=== PATIENT | female | born 1965 | race Caucasian/White ===

== ENCOUNTER 2024-08-14 07:45 | Emergency (ER) | payer MEDICAID, SELFPAY ==
[2024-08-14 07:45] VITALS: BMI 30.7
[2024-08-14 08:17] VITALS: BP 113/66; PULSE 93; RESP 18; TEMP 36.7; O2SAT 97; BMI 40.2
[2024-08-14] MEDS: ACETAMINOPHEN SOL 325 MG/10 ML UDC 650 MG PO (08:44)
[2024-08-14] MEDS: DEXAMETHASONE SOD PHOS INJ 10 MG/ML VIAL PO (08:45)
[2024-08-14 08:52] LABS: Strep A Rapid Negative (Negative)
--- NOTE | 2024-08-14 08:59 | EDNOTE_ITS ---
<Statement entered by Debra Cardenas MD - 08/17/24 13:13> As co-signing physician, I was present and available for consult prn. I concur with the plan and care as documented by the midlevel provider. Upper Respiratory Inf. RME/HPI General Chief Complaint: Dental/Oral/Throat Stated Complaint: SORETHROAT Time Seen by Provider: 08/14/24 07:47 Arrival date/time: 08/14/24 07:45 58-year-old female presents to the emergency department today complaints of sore throat and painful swallowing patient reports multiple sick contacts Limitations: no limitations Related Data Home Medications ?Medication ?Instructions ?Recorded ?Confirmed levothyroxine 100 mcg tablet 100 mcg PO QDAY #0 tabs 12/06/13 05/03/19 (Synthroid) fluoxetine 20 mg capsule (Prozac) 20 mg PO QAM #0 caps 01/23/15 05/03/19 loratadine 10 mg tablet (Claritin) 10 mg PO QDAY #0 tabs 02/03/17 05/03/19 metformin 500 mg tablet 250 mg PO DAILY #0 tabs 03/15/17 05/03/19 (Glucophage) oxybutynin chloride 5 mg tablet 5 mg PO BID #0 tabs 03/15/17 05/03/19 buspirone 15 mg tablet 15 mg PO QDAY 12/01/18 05/03/19 cyclobenzaprine 10 mg tablet 10 mg PO QHSPRN PRN Muscle Spasm 12/01/18 05/03/19 doxazosin 4 mg tablet 4 mg PO QDAY 12/01/18 05/03/19 hydrocodone 7.5 mg-acetaminophen 7.5 - 325 tab PO QDAY 12/01/18 05/03/19 325 mg tablet Previous Rx's ?Medication ?Instructions ?Recorded benzonatate 200 mg capsule 200 mg PO TID PRN cough #20 caps 10/06/22 benzonatate 100 mg capsule 100 mg PO BID PRN cough #14 caps 07/19/23 ciprofloxacin HCl 500 mg tablet 500 mg PO BID #14 tabs 07/19/23 (Cipro) acetaminophen 325 mg tablet (Aphen) 650 mg (2 x 325 mg) PO QID PRN 01/13/24 pain #60 tabs cyclobenzaprine 10 mg tablet 10 mg PO TID PRN muscle spasm #30 06/14/24 tabs acetaminophen 500 mg capsule 1,000 mg (2 x 500 mg) PO Q8HR PRN 08/14/24 pain #30 caps clindamycin HCl 300 mg capsule 300 mg PO TID 7 days #21 caps 08/14/24 Allergies Allergy/AdvReac Type Severity Reaction Status Date / Time amoxicillin Allergy Severe Rash Verified 08/14/24 07:48 aspirin Allergy Severe RASH Verified 08/14/24 07:48 [id number] Allergy Severe ITCH Verified 08/14/24 07:48 ibuprofen Allergy Severe Rash Verified 08/14/24 07:48 metronidazole Allergy Severe Rash Verified 08/14/24 07:48 nefazodone Allergy Severe Rash Verified 08/14/24 07:48 Penicillins Allergy Severe Rash Verified 08/14/24 07:48 silver Allergy Severe Rash Verified 08/14/24 07:48 [From [employer]] Review of Systems Review of Systems Systems Reviewed: All systems reviewed, normal except as documented Constitutional Constitutional: Reports system reviewed and no additional complaints, except as documented, Reports body ache(s), Reports chills, Reports fatigue, Reports fever(s) and Reports headache(s) Eyes Eyes: Reports system reviewed and no additional complaints, except as documented and Denies blurry vision ENT Ears, Nose, Mouth, and Throat: Reports system reviewed and no additional complaints, except as documented, Reports headache(s), Reports nasal congestion, Reports nasal discharge, Reports sore throat and Denies throat swelling Cardiovascular Cardiovascular: Reports system reviewed and no additional complaints, except as documented, Denies chest pain and Denies dyspnea Respiratory Respiratory: Reports system reviewed and no additional complaints, except as documented, Denies chest congestion, Denies cough and Denies dyspnea Gastrointestinal Gastrointestinal: Reports system reviewed and no additional complaints, except as documented and Denies abdominal pain Integumentary/Breasts Skin/Breast: Reports system reviewed and no additional complaints, except as documented and Denies rash Neurologic Neurologic: Reports system reviewed and no additional complaints, except as documented, Reports as per HPI and Reports headache(s) Endocrine Endocrine: Reports fatigue Allergic/Immunologic Allergic/Immunologic: Denies throat swelling Past Medical History Past Medical History NEUROLOGIC: Negative Neurological Disorders CARDIAC: Negative Cardiac Disorders ED Exam General Limitations: Present no limitations General appearance: Present alert and in no apparent distress Head Head exam: Present atraumatic, normocephalic and normal inspection Eye Eye exam: Present normal appearance, PERRL and EOMI; Absent conjunctival injection ENT ENT exam: Present normal exam, normal oropharynx and mucous membranes moist Neck Neck exam: Present normal inspection, full ROM and trachea midline Chest Chest inspection: Present normal inspection and symmetric chest wall rise Respiratory Respiratory exam: Present normal lung sounds bilaterally; Absent respiratory distress Cardiovascular Cardiovascular exam: Present regular rate, normal rhythm and normal heart sounds Abdominal Exam Abdominal exam: Present soft and normal bowel sounds; Absent distention, tenderness, guarding, rebound or rigidity Extremities Exam Extremities exam: Present normal inspection and full ROM; Absent tenderness Back Exam Back exam: Present normal inspection and full ROM Neurological Exam Neurological exam: Present alert, oriented X3, CN II-XII intact, normal gait and reflexes normal; Absent motor sensory deficit Psychiatric Psychiatric exam: Present normal affect and normal mood Skin Skin exam: Present warm, dry, intact and normal color; Absent rash Course Quality Measures none Orders Category Date Time Status Bedside Influenza A&B Antigen Test NOW Care 08/14/24 08:15 Completed Strep A Rapid Stat Lab 08/14/24 08:30 Completed Acetaminophen Fely [Tylenol Fely] Med 08/14/24 08:15 Discontinued 650 mg PO X1 ONE Dexamethasone Inj [Decadron Inj] Med 08/14/24 08:15 Discontinued 10 mg PO X1 ONE Vital Signs Vital signs: Vital Signs Temperature 98.1 F 08/14/24 08:17 Pulse Rate 93 08/14/24 08:17 Respiratory Rate 18 08/14/24 08:17 Blood Pressure 113/66 08/14/24 08:17 Pulse Oximetry (%) 97 08/14/24 08:17 Oxygen Delivery Method Room Air 08/14/24 08:17 O2 saturation 97% on room air within normal limits Upper Respiratory Infection MDM Narrative MDM Narrative:: 58-year-old female presents to the emergency department today complaints of sore throat and painful swallowing patient reports multiple sick contacts On exam patient does not appear ill or toxic but does not appear to be in acute distress patient does report sore throat and pain with swallowing Lab work obtained and is unremarkable Patient given dexamethasone and Tylenol here Symptoms highly consistent with pharyngitis Patient discharged home in no distress to follow-up with primary care doctor in the next 24 to 48 hours and for any worsening symptoms to return to the ER immediately Patient data External records reviewed:: [facility] previous records Clinical information provided by:: patient Social determinants that could affect healthcare access:: none Patient has the following chronic illnesses:: none How is presenting disease/condition affected by chronic disease/condition?: no chronic disease Evaluation data The following diagnostics were reviewed and interpreted by me:: lab results Lab and/or radiology exams considered but not ordered:: Labs obtained Interpretation Summary: Reviewed by me reviewed by me Medications / Prescriptions Medications or Prescriptions considered but not ordered:: Given Medication administrations:: Medication Administration History Discontinued Medications Acetaminophen (Acetaminophen Fely 325 Mg/10 Ml Udc) 650 mg PO X1 ONE Stop: 08/14/24 08:16 Last Admin: 08/14/24 08:44 Dose: 650 mg Documented By: CARLTON Dexamethasone Sodium Phosphate (Dexamethasone Sod Phos Inj 10 Mg/Ml Vial) 10 mg PO X1 ONE Stop: 08/14/24 08:16 Last Admin: 08/14/24 08:45 Dose: 10 mg Documented By: CARLTON Given Consultations Consultation(s) initiated? (list below): No Diagnosis Upper Respiratory Differential Diagnosis: upper respiratory infection, sinusitis, viral infection, bronchitis and pharyngitis Most likely diagnosis given after review of the tests above:: pharyngitis Admission Indicated Admission indicated?: not indicated Admission Request Was there a request for admission?: No Disposition Plan Disposition Plan: Discharge Discharge Attestation Discharge Attestation: The patient and all family members were given an opportunity to ask questions and understood the discharge instructions. Discharge instructions specifically effects, indications for sooner follow up or return to the emergency department, and the expected course of current diagnosis. Patient condition: Stable Discharge Plan Plan Patient Disposition: HOME (Self Care) Disposition Comment: stable Prescriptions/Referrals Prescriptions/Med Rec: New acetaminophen 500 mg capsule 1,000 mg PO Q8HR PRN (Reason: pain) Qty: 30 0RF clindamycin HCl 300 mg capsule 300 mg PO TID 7 Days Qty: 21 0RF No Action levothyroxine [Synthroid] 100 mcg Tablet 100 mcg PO QDAY Qty: 0 fluoxetine [Prozac] 20 MG capsule 20 mg PO QAM Qty: 0 loratadine [Claritin] 10 MG tablet 10 mg PO QDAY Qty: 0 metformin [Glucophage] 500 MG tablet 250 mg PO DAILY Qty: 0 oxybutynin chloride 5 MG tablet 5 mg PO BID Qty: 0 buspirone 15 mg Tablet 15 mg PO QDAY cyclobenzaprine 10 mg Tablet 10 mg PO QHSPRN PRN (Reason: Muscle Spasm) doxazosin 4 mg Tablet 4 mg PO QDAY hydrocodone-acetaminophen 7.5-325 mg Tablet 7.5 - 325 tab PO QDAY ciprofloxacin HCl [Cipro] 500 mg tablet 500 mg PO BID Qty: 14 0RF benzonatate 100 mg capsule 100 mg PO BID PRN (Reason: cough) Qty: 14 0RF acetaminophen [Aphen] 325 mg tablet 650 mg PO QID PRN (Reason: pain) Qty: 60 0RF cyclobenzaprine 10 mg tablet 10 mg PO TID PRN (Reason: muscle spasm) Qty: 30 0RF benzonatate 200 mg capsule 200 mg PO TID PRN (Reason: cough) Qty: 20 0RF Referrals: Pearl Garrison PA-C [Primary Care Provider] - In 1 week Problem List Clinical Impression: Pharyngitis Patient/Caregiver Discharge Instructions Education Materials: Self-Care for Sore Throats Additional Instructions: Please follow up with your primary care doctor in the next 24-48hrs for any worsening symptoms return here immediately Print Language: Panamanian Stand Alone Forms: Silvia Award Info., Patient Portal Info Letter PA/[place] Supervising Physician JEN/[place] Supervising Physician: Dr. cardenas
== END 2024-08-14 09:58 | disposition home or self-care (01) ==
PROVIDERS: Nurse Practitioner Primary Care; Emergency Provider Emergency Medicine; PCP Physician Assistant
DX: J02.9 Acute pharyngitis, unspecified (principal)
CPT/HCPCS: 87400; 87651; 99283; J1100; A9270

== ENCOUNTER 2024-09-12 13:41 | Emergency (ER) | payer MEDICAID, SELFPAY ==
[2024-09-12 14:12] VITALS: BP 91/62; PULSE 110; RESP 18; TEMP 36.8; O2SAT 96; BMI 30.5
--- NOTE | 2024-09-12 14:20 | XR_ITS ---
Examination: PA lateral chest 2 views TECHNIQUE: Upright PA lateral chest 2 views Exam date 9: September 12, 2024 1431 hours Comparison July 13, 2023 INDICATIONS: Coughing beginning 2 days ago. FINDINGS: Stable bilateral granulomatous Normal heart size Accentuation bronchovascular markings IMPRESSION: Bronchitis pattern
--- NOTE | 2024-09-12 14:26 | PD.EDRME ---
Rapid Medical Screening Exam E Arrival date/time: 09/12/24 13:41 58-year-old female with a history of hyperlipidemia, hypothyroidism and type 2 diabetes presents to the emergency room with a chief complaint of lower abdominal pain, diarrhea, cough and congestion x 3 days. I have greeted and performed a focused initial assessment of this patient. A comprehensive ED assessment and evaluation of the patient, analysis of all test results, and completion of the medical decision making process will be conducted by additional ED providers. Chief Complaint: Flu Like Symptoms Time Seen by Provider: 09/12/24 14:12 Vital signs: Vital Signs Temperature 98.3 F 09/12/24 14:12 Pulse Rate 110 H 09/12/24 14:12 Respiratory Rate 18 09/12/24 14:12 Blood Pressure 91/62 09/12/24 14:12 Pulse Oximetry (%) 96 09/12/24 14:12 Oxygen Delivery Method Room Air 09/12/24 14:12 Vital signs reviewed by provider: Yes
--- NOTE | 2024-09-12 14:27 | EKG_ITS ---
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
[2024-09-12 14:47] LABS: Basophils # (Auto) 0.1 Thou/mm3 (0.0-0.2); Basophils % (Auto) 1 % (0-2.5); Eosinophils # (Auto) 0.1 Thou/mm3 (0.0-0.5); Eosinophils % (Auto) 1 % (0-10); Hematocrit 36.9 % (36.0-46.0); Hemoglobin 12.6 g/dL (12.0-16.0); Immature Granulocytes % (Auto) 0 % (0-0); Immature Granulocytes Auto 0.04 Thou/mm3 (0.00-0.00); Lymphocytes # (Auto) 2.8 Thou/mm3 (1.0-4.8); Lymphocytes % (Auto) 28 % (10-50); Mean Corpuscular HGB Conc 34.1 g/dl (31.0-37.0); Mean Corpuscular Hemoglobin 30.1 pg (25.0-35.0); Mean Corpuscular Volume 88 fL (80-100); Monocytes # (Auto) 0.8 Thou/mm3 (0.0-0.8); Monocytes % (Auto) 8 % (0-12); Neutrophils # (Auto) 6.1 Thou/mm3 (1.8-7.7); Neutrophils % (Auto) 62 % (37-80); Nucleated Red Blood Cell % 0 /100 WBC (0); Platelet Count 448 Thou/mm3 (140-440); RDW Standard Deviation 38.6 fL (36.4-46.3); Red Blood Count 4.19 Miln/mm3 (4.00-5.20); White Blood Count 9.8 Thou/mm3 (3.6-11.0)
[2024-09-12 15:08] LABS: Alanine Aminotransferase 15 U/L (10-49); Albumin, Serum 4.6 gm/dL (3.5-5.0); Albumin/Globulin Ratio 1.8 (1.2-2.2); Alkaline Phosphatase 108 U/L (46-116); Anion Gap 4 (7-16); Aspartate Amino Transferase 17 U/L (0-34); BUN/Creatinine Ratio 16 Ratio (12-20); Bilirubin,Total 0.7 mg/dL (0.3-1.2); Blood Urea Nitrogen 13 mg/dL (9-23); Carbon Dioxide 27.6 mMol/L (20.0-31.0); Chloride 110 mMol/L (98-107); Creatinine (Component) 0.8 mg/dL (0.6-1.3); Estimated Creatinine Clearance 94.7 mL/min (>60); Globulin 2.5 gm/dL (2.3-3.5); Glucose 82 mg/dL (74-106); Lipase 36 U/L (12-53); Osmolality,Calculated 282 (275-295); Potassium 4.1 mMol/L (3.4-5.1); Sodium 142 mMol/L (136-145); Total Protein 7.1 gm/dL (5.7-8.2); Troponin I < 0.002 ng/mL (0.0-0.045); eGFR > 60 See Note
[2024-09-12 15:11] LABS: B-Type Natriuretic Peptide < 20 pg/mL (0-100)
[2024-09-12 15:14] LABS: Collection Type, Urine Clean Catch
[2024-09-12 15:41] LABS: Bacteria,Urine 2+; Bilirubin,Urine Negative (Negative); Blood,Urine Negative (Negative); Clarity,Urine Turbid (Clear/Hazy); Color,Urine Yellow (Lt Yel-Yel); Glucose, Urine Negative (Negative); Ketones,Urine Negative (Negative); Leukocyte Esterase,Urine Positive (Negative); Nitrite,Urine Negative (Negative); PH,Urine 6.5 (5.0-7.0); Protein,Urine Trace (Neg - Trace); RBC,Urine 4 /hpf (0-3); Specific Gravity,Urine 1.024 (1.001-1.035); Squamous Epithelial Cell,Urine 31 /hpf (0-5); Urobilinogen,Urine Negative mg/dL (0.0-1.0); WBC,Urine 13 /hpf (0-5)
--- NOTE | 2024-09-12 18:25 | PD.EDURI ---
Upper Respiratory Inf. RME/HPI General Chief Complaint: Flu Like Symptoms Stated Complaint: COUGH, CONGESTION, ABD PAIN, DIARRHEA Time Seen by Provider: 09/12/24 14:12 Arrival date/time: 09/12/24 13:41 RME / HPI RME / HPI Narrative: 09/12/24 13:41 58-year-old female with a history of hyperlipidemia, hypothyroidism and type 2 diabetes presents to the emergency room with a chief complaint of lower abdominal pain, diarrhea, cough and congestion x 3 days. I have greeted and performed a focused initial assessment of this patient. A comprehensive ED assessment and evaluation of the patient, analysis of all test results, and completion of the medical decision making process will be conducted by additional ED providers. This section includes all my notes and documentations, including HPI, PE, and ED course. Martin Harvey MD HPI: 58yo female presents to the ED for a chief complaint of flu-like symptoms x 2 days. Patient states she's had a productive cough with dark green phlegm, nausea, diarrhea, and generalized body aches for the last two days. She's been taking Tylenol 650mg without any improvement of symptoms, so she came in for evaluation. She denies any fever, chills, vomiting or any other associated symptoms. No other complaints reported. ROS: All negative except as documented in HPI. Physical Exam: General: Alert and oriented. Hacking cough noted. Eyes: Conjunctivae and lids clear. ENT: No nasal congestion. Neck: Supple. Heart: RRR. Lungs: No respiratory distress. Good air movement. No rhonchi, wheezing, rales. Abdomen: Soft and nontender. Legs: No clubbing, cyanosis, edema. Skin: Warm and dry. Neuro: Alert and oriented X 3. I reviewed all diagnostic test results. Remarkable for positive influenza. At this point, diagnoses include Influenza. Treatment here included Tamiflu and Prednisone. Recommended supportive care. Based on my best medical judgment, made decision no further evaluation or treatment indicated at this time. Patient understands and agrees to the discharge instructions customized and printed, see below. Discharge instructions from Dr. Harvey: --No physical exertion for 3 days to help rest your lungs. --No smoking and no exposure to smoking or pets or dust or cold air. --Tamiflu to kill the influenza germs. --Prednisone to help decrease inflammation of the lungs. --Ibuprofen 800 mg every 8 hours today and tomorrow. Then as needed for fever or pain. --Tylenol with codeine for severe cough or pain. --Benadryl as needed for cough or congestion. --Albuterol 2 puffs every 4-6 hours for 24 hours scheduled. Then as needed (and in between) for cough or shortness or breath. ?Increase oral fluid. We need extra fluid when we are sick. --See a private doctor next week if not better. --Seek immediate medical care with significant worsening or with any concerns. Martin Harvey MD Related Data Home Medications ?Medication ?Instructions ?Recorded ?Confirmed levothyroxine 100 mcg tablet 100 mcg PO QDAY #0 tabs 12/06/13 09/04/24 (Synthroid) fluoxetine 20 mg capsule (Prozac) 20 mg PO QAM #0 caps 01/23/15 09/04/24 loratadine 10 mg tablet (Claritin) 10 mg PO QDAY #0 tabs 02/03/17 09/04/24 metformin 500 mg tablet 250 mg PO DAILY #0 tabs 03/15/17 09/04/24 (Glucophage) buspirone 15 mg tablet 15 mg PO BID 12/01/18 09/04/24 cyclobenzaprine 10 mg tablet 10 mg PO QHSPRN PRN Muscle Spasm 12/01/18 09/04/24 doxazosin 4 mg tablet 4 mg PO QDAY 12/01/18 09/04/24 hydrocodone 7.5 mg-acetaminophen 7.5 - 325 tab PO QDAY 12/01/18 09/04/24 325 mg tablet atorvastatin 20 mg tablet 20 mg PO QDAY 09/04/24 09/04/24 fluticasone furoate 100 1 inh inhalation QDAY 09/04/24 09/04/24 mcg/actuation blister powder for inhalation (Arnuity Ellipta) vibegron 75 mg tablet (Gemtesa) 75 mg PO QDAY 09/04/24 09/04/24 Previous Rx's ?Medication ?Instructions ?Recorded benzonatate 200 mg capsule 200 mg PO TID PRN cough #20 caps 10/06/22 benzonatate 100 mg capsule 100 mg PO BID PRN cough #14 caps 12/19/23 acetaminophen 325 mg tablet (Aphen) 650 mg (2 x 325 mg) PO QID PRN 01/13/24 pain #60 tabs cyclobenzaprine 10 mg tablet 10 mg PO TID PRN muscle spasm #30 01/13/24 tabs acetaminophen 300 mg-codeine 30 mg 2 tab PO TID PRN pain #20 tabs 09/12/24 tablet albuterol sulfate 90 mcg/actuation 2 inh inhalation QID PRN shortness 09/12/24 aerosol inhaler of breath or wheezing #8.5 grams oseltamivir 75 mg capsule (Tamiflu) 75 mg PO BID 5 days #10 caps 09/12/24 prednisone 20 mg tablet 20 mg PO QDAY 5 days #5 tabs 09/12/24 Allergies Allergy/AdvReac Type Severity Reaction Status Date / Time amoxicillin Allergy Severe Rash Verified 09/04/24 12:23 aspirin Allergy Severe RASH Verified 09/04/24 12:23 [id number] Allergy Severe ITCH Verified 08/14/24 07:48 ibuprofen Allergy Severe Rash Verified 09/04/24 12:23 metronidazole Allergy Severe Rash Verified 09/04/24 12:23 nefazodone Allergy Severe Rash Verified 09/04/24 12:23 Penicillins Allergy Severe Rash Verified 09/04/24 12:23 silver (From Tegaderm [employer] Allergy Severe Rash Verified 09/04/24 12:23 Mesh) Review of Systems Review of Systems Systems Reviewed: All systems reviewed, normal except as documented Past Medical History Past Medical History NEUROLOGIC: Negative Neurological Disorders or Seizures CARDIAC: Positive Cardiac Disorders and Hypercholesterolemia; Negative Congestive Heart Failure or Edema RESPIRATORY: Positive Chronic Obstructive Pulmonary Disease (COPD), Asthma and Bronchitis; Negative Tuberculosis or Sleep Apnea GASTROINTESTINAL: Positive Gastrointestinal Disorders and Hiatal Hernia; Negative Hepatitis or Colorectal Cancer GENITOURINARY: Positive Genitourinary Disorders (overactive bladder); Negative Renal Disease REPRODUCTIVE: Positive Previous Pregnancies; Negative Breast Cancer, Endometriosis, Genital Herpes, Gonorrhea, Pelvic Inflammatory Disease, Syphilis or Uterine Prolapse MUSCULOSKELETAL: Positive Musculoskeletal Disorders (djd), Arthritis and Fractures ENT: Negative Blind ENDOCRINE: Positive Endocrine Disorders, Diabetes Mellitus Type 2, Hyperthyroidism and Hypothyroidism; Negative Diabetes Mellitus Type 1 HEMATOLOGIC: Negative Blood Disorders PSYCHO/SOCIAL: Positive Depression; Negative Anxiety or Post Traumatic Stress Disorder OTHER HISTORY: Positive Chicken Pox; Negative Autoimmune Disease, Shingles, Falls, Blood Transfusions, Anesthesia Reactions, Chemotherapy, MRSA, Human Immunodeficiency Virus (HIV), Measles, Mumps, Rubella (Bulgarian Measles), Pertussis, Clostridium Difficile, Cancer, Breast Cancer, Cervical Cancer, Colorectal Cancer, Lung Cancer or Ovarian Cancer Family History FAMILY HISTORY: Positive Family Surgery; Negative Family Psychiatric Problems, Family Respiratory Disorders, Family Cardiac Disorders, Family Gastrointestinal Problems, Family Cancer or Family Anesthesia Reaction Surgical History SURGICAL: Positive Abdominal Surgery, Nephrectomy, Joint Replacement, Hysterectomy and Section; Negative Cardiac Surgery, Endocrine Surgery, Ear Surgery or Neurologic Surgery Social History SMOKING STATUS: Never smoker ED Exam Narrative Physical exam: As noted in HPI. Course Course Course Narrative: CXR is ordered for determining the etiology of cough. Quality Measures none Orders Category Date Time Status Bedside COVID-19 Antigen Test NOW Care 09/12/24 14:19 Active Bedside Influenza A&B Antigen Test NOW Care 09/12/24 14:19 Completed EKG (ED ONLY) *Do not use* NOW Care 09/12/24 14:27 Completed EKG (ED Only) Stat Exams 09/12/24 14:27 Draft XR chest 2V Stat Exams 09/12/24 14:20 Completed BNP [B-Type Natriuretic Peptide] Stat Lab 09/12/24 14:27 Completed CBC Stat Lab 09/12/24 14:27 Completed CMP [Comprehensive Metabolic Panel] Stat Lab 09/12/24 14:27 Completed Lipase Stat Lab 09/12/24 14:27 Completed Troponin I Stat Lab 09/12/24 14:27 Completed UA [Urinalysis] Stat Lab 09/12/24 15:05 Completed Urine Culture Stat Lab 09/12/24 15:05 Received Oseltamivir [Tamiflu] Med 09/12/24 18:35 Discontinued 75 mg PO X1 ONE predniSONE Med 09/12/24 18:35 Discontinued 60 mg PO X1 ONE Vital Signs Vital signs: Vital Signs Temperature 98.3 F 09/12/24 14:12 Pulse Rate 110 H 09/12/24 14:12 Respiratory Rate 18 09/12/24 14:12 Blood Pressure 91/62 09/12/24 14:12 Pulse Oximetry (%) 96 09/12/24 14:12 Oxygen Delivery Method Room Air 09/12/24 14:12 Upper Respiratory Infection MDM Narrative MDM Narrative:: Scribe Attestation: 09/12/24 Elmira Mark am scribing for and in the presence of Dr. Harvey. Patient data External records reviewed:: [facility] previous records (Per chart review, patient was seen here on 08/14/24 for pharyngitis.) Clinical information provided by:: patient Social determinants that could affect healthcare access:: none Patient has the following chronic illnesses:: asthma, HLD How is presenting disease/condition affected by chronic disease/condition?: uneffected by Evaluation data The following diagnostics were reviewed and interpreted by me:: lab results, radiology exam(s) and EKG tracing(s) Lab and/or radiology exams considered but not ordered:: none Interpretation Summary: Influenza Medications / Prescriptions Medications or Prescriptions considered but not ordered:: none Medication administrations:: Medication Administration History Discontinued Medications Oseltamivir Phosphate (Oseltamivir 75 Mg Capsule) 75 mg PO X1 ONE Stop: 09/12/24 18:36 Prednisone (Prednisone 20 Mg Tablet) 60 mg PO X1 ONE Stop: 09/12/24 18:36 Tamiflu, Prednisone Consultations Consultation(s) initiated? (list below): No Diagnosis Upper Respiratory Differential Diagnosis: upper respiratory infection, otitis media, sinusitis, viral infection, bronchitis, influenza and pharyngitis Most likely diagnosis given after review of the tests above:: Influenza Admission Indicated Admission indicated?: not indicated Explain why admission is indicated or not indicated:: No criteria for admission. Admission Request Was there a request for admission?: No Disposition Plan Disposition Plan: Discharge Discharge Attestation Discharge Attestation: The patient and all family members were given an opportunity to ask questions and understood the discharge instructions. Discharge instructions specifically effects, indications for sooner follow up or return to the emergency department, and the expected course of current diagnosis. Patient condition: Stable Discharge Plan Plan Patient Disposition: HOME (Self Care) Prescriptions/Referrals Prescriptions/Med Rec: New acetaminophen-codeine 300-30 mg tablet 2 tab PO TID MDD 6 PRN (Reason: pain) Qty: 20 0RF albuterol sulfate 90 mcg/actuation HFA aerosol inhaler 2 inh inhalation QID PRN (Reason: shortness of breath or wheezing) Qty: 8.5 0RF prednisone 20 mg tablet 20 mg PO QDAY 5 Days Qty: 5 0RF Taper: Prednisone Taper 20 mg DAILY for 2 Days and 0 Hour 10 mg DAILY for 2 Days and 0 Hour 5 mg DAILY for 7 Days and 0 Hour oseltamivir [Tamiflu] 75 mg capsule 75 mg PO BID 5 Days Qty: 10 0RF No Action levothyroxine [Synthroid] 100 mcg Tablet 100 mcg PO QDAY Qty: 0 fluoxetine [Prozac] 20 MG capsule 20 mg PO QAM Qty: 0 loratadine [Claritin] 10 MG tablet 10 mg PO QDAY Qty: 0 metformin [Glucophage] 500 MG tablet 250 mg PO DAILY Qty: 0 buspirone 15 mg Tablet 15 mg PO BID cyclobenzaprine 10 mg Tablet 10 mg PO QHSPRN PRN (Reason: Muscle Spasm) doxazosin 4 mg Tablet 4 mg PO QDAY hydrocodone-acetaminophen 7.5-325 mg Tablet 7.5 - 325 tab PO QDAY benzonatate 100 mg capsule 100 mg PO BID PRN (Reason: cough) Qty: 14 0RF acetaminophen [Aphen] 325 mg tablet 650 mg PO QID PRN (Reason: pain) Qty: 60 0RF cyclobenzaprine 10 mg tablet 10 mg PO TID PRN (Reason: muscle spasm) Qty: 30 0RF benzonatate 200 mg capsule 200 mg PO TID PRN (Reason: cough) Qty: 20 0RF Gemtesa 75 mg tablet 75 mg PO QDAY Patient Comments: TAKE ONE TABLET BY MOUTH EVERY DAY FOR OVERACTIVE BLADDER Arnuity Ellipta 100 mcg/actuation blister with device 1 inh inhalation QDAY atorvastatin 20 mg tablet 20 mg PO QDAY Patient Comments: TAKE ONE TABLET BY MOUTH AT BEDTIME FOR CHOLESTEROL Referrals: Pearl Garrison PA-C [Primary Care Provider] - In 1 week Problem List Clinical Impression: Influenza Patient/Caregiver Discharge Instructions Discharge Activity: activity as tolerated Education Materials: ED Influenza (Adult) Additional Instructions: Discharge instructions from Dr. Harvey: --No physical exertion for 3 days to help rest your lungs. --No smoking and no exposure to smoking or pets or dust or cold air. --Tamiflu to kill the influenza germs. --Prednisone to help decrease inflammation of the lungs. --Ibuprofen 800 mg every 8 hours today and tomorrow.? Then as needed for fever or pain. --Tylenol with codeine for severe cough or pain.? --Benadryl as needed for cough or congestion.? --Albuterol 2 puffs every 4-6 hours for 24 hours scheduled.? Then as needed (and in between) for cough or shortness or breath.?? ?Increase oral fluid.? We need extra fluid when we are sick.?? --See a private doctor next week if not better. --Seek immediate medical care with significant worsening or with any concerns. Print Language: Egyptian Stand Alone Forms: [employer] Award Info., Patient Portal Info Letter
[2024-09-12 18:35] VITALS: BP 115/77; PULSE 66; RESP 18; TEMP 36.6; O2SAT 99
[2024-09-12] MEDS: OSELTAMIVIR 75 MG CAPSULE PO (18:52)
[2024-09-12] MEDS: predniSONE 20 MG TABLET 60 MG PO (18:53)
== END 2024-09-12 19:25 | disposition home or self-care (01) ==
PROVIDERS: Nurse Practitioner Family; Emergency Provider Emergency Medicine; PCP Physician Assistant
DX: J11.1 Influenza due to unidentified influenza virus with other respiratory manifestations (principal); E03.9 Hypothyroidism, unspecified; E11.9 Type 2 diabetes mellitus without complications
CPT/HCPCS: 36415; 71046; 80053; 81001; 83690; 83880; 84484; 85025; 87086; 87400; 87811; 93005; 99283; J7512; A9270

== ENCOUNTER → 2024-09-20 | Outpatient (CLI) | payer MEDICAID, SELFPAY ==
--- NOTE | 2024-09-20 08:26 | XR_ITS ---
Examination: Screening digital mammography, bilateral Computer aided detection 3-D breast Tomosynthesis, bilateral Date and time of exam: September 20, 2024 0830 hours Compared to mammograms dating to February 17, 2018 Indication: Screening Technique: Nonmagnified MLO, CC views of the breasts to been obtained, reconstructed from 3-D Tomosynthesis images. R2 computer aided detection program utilized for evaluation of suspicious masses and/or abnormal calcifications. 3-D Tomosynthesis images obtained. Findings: Scattered areas of fibroglandular density. Benign calcifications. No interval suspicious masses Impression: BI-RADS category II: Benign Findings. Recommend 1 year follow-up mammogram.
== END | disposition home or self-care (01) ==
PROVIDERS: Referring Provider Physician Assistant; Visit Provider Physician Assistant
DX: Z12.31 Encounter for screening mammogram for malignant neoplasm of breast (principal); R92.323 Mammographic fibroglandular density, bilateral breasts; R92.1 Mammographic calcification found on diagnostic imaging of breast
CPT/HCPCS: 77063; 77067